=== PATIENT | male | born 1955 | race Two or more races ===

== ENCOUNTER 2020-05-01 09:29 | Inpatient (IN) | payer MEDICARE, MEDICAID ==
[~2020-05-01] VITALS: Ht 160 cm; Wt 68.0 kg
[2020-05-01 10:08] LABS: BASOPHILS % 0.6 % (0.0-2.0); EOSINOPHILS % 0.5 % (0.0-5.0); HEMATOCRIT. 51.5 % (42.0-52.0); HEMOGLOBIN. 16.9 g/dL (14.0-18.0); LYMPHOCYTES % 19.6 % (20.0-50.0); MEAN CORPUSCULAR HEMOGLOBIN 28.3 pg (28.0-32.0); MEAN CORPUSCULAR VOLUME 85.9 fL (80.0-94.0); MEAN PLATELET VOLUME 8.7 fl (7.4-10.4); MONOCYTES % 9.7 % (2.0-8.0); NEUTROPHILS % 69.6 % (40.0-76.0); PLATELET 168 x1000/uL (130-400); RED BLOOD CELL COUNT 5.99 mill/uL (4.7-6.1); RED CELL DISTRIBUTION WIDTH 15.7 % (11.6-14.6)
[2020-05-01 10:15] LABS: CHLORIDE 109 mEq/L (98-107)
[2020-05-01 10:16] LABS: PROTHROMBIN TIME 10.7 sec (9.6-11.0)
[2020-05-01 10:19] LABS: ETHANOL BLOOD < 10 mg/dL
[2020-05-01 10:24] LABS: CLARITY URINE CLEAR (CLEAR); COLOR URINE YELLOW (YELLOW); KETONES URINE NEGATIVE (NEGATIVE); LEUKOCYTE ESTERASE URINE NEGATIVE (NEGATIVE); NITRITE URINE NEGATIVE (NEGATIVE); OCCULT BLOOD URINE TRACE (NEGATIVE); PROTEIN URINE 1+ (NEGATIVE); SPECIFIC GRAVITY URINE 1.014 (1.005-1.030); UROBILINOGEN URINE 0.2 E.U./dL (0.2-1.0)
[2020-05-01 10:48] LABS: BG BASE EXCESS -9.9 mmol/L (-2.0-2.0); BG CARBOXYHEMOGLOBIN 0.3 % (0.5-1.5); BG DEOXYHEMOGLOBIN 3.7 % (0.0-5.0); BG FRACTION INSPIRED OXYGEN 21; BG HCO3 ACT 16.7 mmol/L (22.0-26.0); BG METHEMOGLOBIN 0.2 % (0.0-1.5); BG OXYGEN SATURATION 96.3 % (92.0-98.5); BG OXYHEMOGLOBIN 95.8 % (94.0-97.0); BG PCO2 39.2 mmHg (35.0-45.0); BG PH 7.247 (7.350-7.450); BG PO2 93.1 mmHg (75.0-100.0); BG SAMPLE SITE RIGHT RADIAL; BG TOTAL HEMOGLOBIN 16.1 g/dL (12.0-18.0); BG VENT MODE ROOM AIR
[2020-05-01] MEDS ORDERED: PIPERACILLIN/TAZ 3.375G PREMIX 50 ML IV ONE (11:30)
[2020-05-01] MEDS ORDERED: VANCOMYCIN 1 G PREMIX 200 ML IV ONE (11:30)
[2020-05-01] MEDS ORDERED: SODIUM CHLORIDE 0.9% 1000ML BAG (SEPSIS BOLUS) IV ONE (11:30)
[2020-05-01] MEDS ORDERED: DIPHENHYDRAMINE 50MG/ML VIAL IV PRN (18:30)
[2020-05-01] MEDS ORDERED: ONDANSETRON HCL 4MG/2ML INJ IV PRN (18:30)
[2020-05-01] MEDS ORDERED: IPRATROPIUM/ALBUTEROL 0.5-3(2.5)MG/3ML NEB HHN PRN (18:30)
[2020-05-01] MEDS: SODIUM CHLORIDE 0.9% 1,000 ML IV SCH (18:57)
[2020-05-01] MEDS: CLONIDINE 0.1MG TABLET PO PRN (18:57)
[2020-05-01 19:28] LABS: PHOSPHORUS 6.4 mg/dL (2.5-4.9)
[2020-05-01] MEDS ORDERED: PIPERACILLIN/TAZ 3.375G PREMIX 50 ML IV SCH (20:00)
[2020-05-01] MEDS ORDERED: PIPERACILLIN/TAZOBACTAM 3.375 G in DEXT 5% WATER 100 ML IV NR (20:45)
[2020-05-01] MEDS ORDERED: CLONIDINE 0.3MG TABLET PO NR (21:32)
[2020-05-01 23:35] LABS: BASOPHILS % 0.4 % (0.0-2.0); EOSINOPHILS % 0.7 % (0.0-5.0); HEMATOCRIT. 45.2 % (42.0-52.0); LYMPHOCYTES % 9.7 % (20.0-50.0); MEAN CORPUSCULAR HEMOGLOBIN 28.2 pg (28.0-32.0); MEAN CORPUSCULAR VOLUME 85.2 fL (80.0-94.0); MEAN PLATELET VOLUME 8.6 fl (7.4-10.4); MONOCYTES % 9.8 % (2.0-8.0); NEUTROPHILS % 79.4 % (40.0-76.0); PLATELET 148 x1000/uL (130-400); RED CELL DISTRIBUTION WIDTH 15.7 % (11.6-14.6)
[2020-05-01 23:41] LABS: PHOSPHORUS 4.6 mg/dL (2.5-4.9)
[2020-05-01 23:46] LABS: CREATINE KINASE MB FRACTION 3.6 ng/mL (0.5-3.6)
[2020-05-02] MEDS ORDERED: PIPERACILLIN/TAZ 3.375G PREMIX 50 ML IV SCH (04:00)
[2020-05-02 04:43] LABS: CHLORIDE 111 mEq/L (98-107)
[2020-05-02 04:47] LABS: BASOPHILS % 0.5 % (0.0-2.0); EOSINOPHILS % 0.7 % (0.0-5.0); HEMOGLOBIN. 15.2 g/dL (14.0-18.0); LYMPHOCYTES % 10.1 % (20.0-50.0); MEAN CORPUSCULAR HEMOGLOBIN 28.2 pg (28.0-32.0); MEAN CORPUSCULAR VOLUME 85.4 fL (80.0-94.0); MEAN PLATELET VOLUME 8.5 fl (7.4-10.4); MONOCYTES % 9.7 % (2.0-8.0); PLATELET 150 x1000/uL (130-400); RED BLOOD CELL COUNT 5.39 mill/uL (4.7-6.1); RED CELL DISTRIBUTION WIDTH 15.9 % (11.6-14.6)
[2020-05-02 04:49] LABS: LDL CHOLESTEROL 66 mg/dL (5-100)
[2020-05-02 04:51] LABS: CREATINE KINASE 320 IU/L (39-308); HDL CHOLESTEROL 42 mg/dL (40-59)
[2020-05-02 04:54] LABS: CREATINE KINASE MB FRACTION 3.6 ng/mL (0.5-3.6)
[2020-05-02] MEDS ORDERED: LABETALOL 5MG/ML SYR 20 MG/4 ML SYRINGE IV ONE (06:15)
[2020-05-02] MEDS ORDERED: PIPERACILLIN/TAZOBACTAM 2.25 G in DEXTROSE 5% WATER 50 ML IV SCH (08:00)
[2020-05-02] MEDS: CLONIDINE 0.1MG TABLET PO PRN ×2 (09:13→21:31)
[2020-05-02 10:00] VITALS: BP 239/124
[2020-05-02] MEDS: PIPERACILLIN/TAZOBACTAM 2.25 G in DEXTROSE 5% WATER 50 ML IV SCH ×2 (10:12→17:07)
[2020-05-02] MEDS: HYDRALAZINE 20MG/ML VIAL IV PRN ×3 (10:45→21:33)
[2020-05-02] MEDS ORDERED: DEXTROSE 50% WATER 50ML SYRINGE IV PRN (11:30)
[2020-05-02 11:55] VITALS: BP_SYST 129; BP_SYST 239; BP_DIAS 134; BP_DIAS 71
[2020-05-02 12:00] VITALS: BP 210/104
[2020-05-02] MEDS ORDERED: CYCL100C MT (12:08)
[2020-05-02] MEDS ORDERED: INSU100I28 SQ (12:08)
[2020-05-02] MEDS ORDERED: INSU100C6 SQ (12:08)
[2020-05-02] MEDS ORDERED: TAMS-11 PO (12:08)
[2020-05-02] MEDS ORDERED: PRED5TAB MT (12:08)
[2020-05-02] MEDS ORDERED: ATOR20TA65 PO (12:08)
[2020-05-02] MEDS ORDERED: FURO20TA4 MT (12:08)
[2020-05-02] MEDS ORDERED: GABA-531 PO (12:08)
[2020-05-02] MEDS: INSULIN LISPRO 100 UNITS/ML SUBCUT SCH ×3 (12:52→21:31)
[2020-05-02] MEDS: BLOOD SUGAR DIAGNOSTIC STRIP TEST SCH ×3 (12:52→21:21)
[2020-05-02] MEDS ORDERED: LABETALOL 5MG/ML SYR 20 MG/4 ML SYRINGE IV SCH (15:00)
[2020-05-02] MEDS: SODIUM CHLORIDE 0.9% 1,000 ML IV SCH ×2 (15:35→21:33)
[2020-05-02 16:00] VITALS: BP 126/66
[2020-05-02] MEDS: CYCLOSPORINE, MODIFIED 100MG CAPSULE PO SCH (17:05)
[2020-05-02 17:47] LABS: CLARITY URINE CLEAR (CLEAR); COLOR URINE YELLOW (YELLOW); KETONES URINE NEGATIVE (NEGATIVE); LEUKOCYTE ESTERASE URINE NEGATIVE (NEGATIVE); NITRITE URINE NEGATIVE (NEGATIVE); OCCULT BLOOD URINE 1+ (NEGATIVE); PROTEIN URINE 2+ (NEGATIVE); SPECIFIC GRAVITY URINE 1.012 (1.005-1.030); UROBILINOGEN URINE 0.2 E.U./dL (0.2-1.0)
[2020-05-02 20:00] VITALS: BP 215/103
[2020-05-02] MEDS: GUAIFENESIN 600MG ER TABLET PO SCH (21:32)
[2020-05-02] MEDS: ATORVASTATIN CALCIUM 20MG TABLET PO SCH (21:32)
[2020-05-02] MEDS: NIFEDIPINE XL 60MG TAB PO SCH (21:32)
[2020-05-02] MEDS: ACETAMINOPHEN 325MG TABLET PO PRN (21:32)
[2020-05-02 22:59] VITALS: BP 211/100
[2020-05-03] VITALS: BP 157/82
[2020-05-03] MEDS: PIPERACILLIN/TAZOBACTAM 2.25 G in DEXTROSE 5% WATER 50 ML IV SCH ×4 (00:22→17:27)
[2020-05-03 04:00] VITALS: BP 104/56
[2020-05-03] MEDS: ACETAMINOPHEN 325MG TABLET PO PRN (04:02)
[2020-05-03] MEDS: INSULIN LISPRO 100 UNITS/ML SUBCUT SCH ×4 (06:53→21:01)
[2020-05-03] MEDS: BLOOD SUGAR DIAGNOSTIC STRIP TEST SCH ×4 (06:53→21:02)
[2020-05-03 07:28] LABS: BASOPHILS % 1.1 % (0.0-2.0); HEMATOCRIT. 48.1 % (42.0-52.0); HEMOGLOBIN. 15.9 g/dL (14.0-18.0); LYMPHOCYTES % 9.4 % (20.0-50.0); MEAN CORPUSCULAR HEMOGLOBIN 28.2 pg (28.0-32.0); MEAN CORPUSCULAR VOLUME 85.1 fL (80.0-94.0); MEAN PLATELET VOLUME 8.7 fl (7.4-10.4); NEUTROPHILS % 75.5 % (40.0-76.0); PLATELET 141 x1000/uL (130-400); RED BLOOD CELL COUNT 5.65 mill/uL (4.7-6.1); RED CELL DISTRIBUTION WIDTH 15.8 % (11.6-14.6)
[2020-05-03 07:33] LABS: CHLORIDE 108 mEq/L (98-107)
[2020-05-03 07:46] LABS: PHOSPHORUS 5.1 mg/dL (2.5-4.9)
[2020-05-03 08:00] VITALS: BP 92/52
[2020-05-03] MEDS: NIFEDIPINE XL 60MG TAB PO SCH (09:00)
[2020-05-03] MEDS: TAMSULOSIN HCL 0.4MG SR CAPSULE PO SCH (09:00)
[2020-05-03] MEDS: PREDNISONE 5MG TABLET PO SCH (09:35)
[2020-05-03] MEDS: GUAIFENESIN 600MG ER TABLET PO SCH ×2 (09:35→21:00)
[2020-05-03] MEDS: CYCLOSPORINE, MODIFIED 25MG CAPSULE PO SCH (09:36)
[2020-05-03] MEDS ORDERED: SODIUM POLYSTYRENE SULFONATE 15 G/60 ML BOT PO NR (10:15)
[2020-05-03 12:00] VITALS: BP 121/71
[2020-05-03] MEDS: SODIUM CHLORIDE 0.9% 1,000 ML IV SCH (12:37)
[2020-05-03 16:00] VITALS: BP 148/88
[2020-05-03] MEDS: CYCLOSPORINE, MODIFIED 100MG CAPSULE PO SCH (17:27)
[2020-05-03 20:00] VITALS: BP 177/87
[2020-05-03] MEDS: ATORVASTATIN CALCIUM 20MG TABLET PO SCH (21:00)
[2020-05-03] MEDS: NIFEDIPINE XL 30MG TAB PO SCH (21:00)
[2020-05-04] VITALS: BP 180/89
[2020-05-04] MEDS: SODIUM CHLORIDE 0.9% 1,000 ML IV SCH ×2 (00:15→13:02)
[2020-05-04] MEDS: PIPERACILLIN/TAZOBACTAM 2.25 G in DEXTROSE 5% WATER 50 ML IV SCH ×3 (00:16→12:59)
[2020-05-04] MEDS: CLONIDINE 0.1MG TABLET PO PRN (00:16)
[2020-05-04 04:00] VITALS: BP 177/84
[2020-05-04] MEDS: HYDRALAZINE 20MG/ML VIAL IV PRN (05:08)
[2020-05-04] MEDS: BLOOD SUGAR DIAGNOSTIC STRIP TEST SCH ×2 (06:33→11:45)
[2020-05-04] MEDS: INSULIN LISPRO 100 UNITS/ML SUBCUT SCH ×2 (06:44→12:59)
[2020-05-04 08:00] VITALS: BP 126/69
[2020-05-04 08:05] LABS: BASOPHILS % 0.8 % (0.0-2.0); EOSINOPHILS % 1.1 % (0.0-5.0); HEMATOCRIT. 47.5 % (42.0-52.0); HEMOGLOBIN. 15.6 g/dL (14.0-18.0); LYMPHOCYTES % 9.9 % (20.0-50.0); MEAN CORPUSCULAR HEMOGLOBIN 27.9 pg (28.0-32.0); MEAN CORPUSCULAR VOLUME 84.9 fL (80.0-94.0); MONOCYTES % 11.8 % (2.0-8.0); NEUTROPHILS % 76.4 % (40.0-76.0); PLATELET 147 x1000/uL (130-400); RED CELL DISTRIBUTION WIDTH 15.9 % (11.6-14.6)
[2020-05-04] MEDS: NIFEDIPINE XL 30MG TAB PO SCH (08:47)
[2020-05-04] MEDS: GUAIFENESIN 600MG ER TABLET PO SCH (08:47)
[2020-05-04] MEDS: TAMSULOSIN HCL 0.4MG SR CAPSULE PO SCH (08:47)
[2020-05-04] MEDS: PREDNISONE 5MG TABLET PO SCH (08:47)
[2020-05-04] MEDS ORDERED: INSU100I28 SQ (11:49)
[2020-05-04] MEDS ORDERED: NIFE-33 PO (11:49)
[2020-05-04] MEDS: CYCLOSPORINE, MODIFIED 25MG CAPSULE PO SCH (11:50)
[2020-05-04 12:00] VITALS: BP 140/84
[2020-05-04 14:27] VITALS: BP 126/69
[2020-05-07 08:11] LABS: CYCLOSPORINE None Detected ng/mL (100-400)
== END 2020-05-04 15:45 | disposition home or self-care (01) | DRG 871 ==
LOC: ER 09:29 → EDBEDREQTM 11:37 → EDBEDREQ 11:37 → 7WST 13:02 → EDBEDREQTM 13:05 → EDBEDREQSVC 13:05 → EDBEDREQ 13:05 → ENRESERV 21:21 → CANRESERV 21:21 → EDBEDREQ 05-02 00:22 → CANBEDREQ 05-02 04:59 → ENRESERV 05-02 08:31 → 5WST 05-02 23:08
PROVIDERS: ADMIT Internal Medicine; ATTEND Internal Medicine
DX: A41.9 Sepsis, unspecified organism (principal); G93.41 Metabolic encephalopathy; J18.9 Pneumonia, unspecified organism; E87.2 Acidosis; N17.9 Acute kidney failure, unspecified; T86.12 Kidney transplant failure; E11.649 Type 2 diabetes mellitus with hypoglycemia without coma; E78.5 Hyperlipidemia, unspecified; R07.89 Other chest pain; E83.39 Other disorders of phosphorus metabolism; E83.41 Hypermagnesemia; I10 Essential (primary) hypertension; N40.0 Benign prostatic hyperplasia without lower urinary tract symptoms; E11.51 Type 2 diabetes mellitus with diabetic peripheral angiopathy without gangrene; I48.91 Unspecified atrial fibrillation; I16.0 Hypertensive urgency; Z86.73 Personal history of transient ischemic attack (TIA), and cerebral infarction without residual deficits; Z87.891 Personal history of nicotine dependence; Z79.4 Long term (current) use of insulin; Z89.432 Acquired absence of left foot; Y83.0 Surgical operation with transplant of whole organ as the cause of abnormal reaction of the patient, or of later complication, without mention of misadventure at the time of the procedure; Y92.89 Other specified places as the place of occurrence of the external cause; Z20.828 Contact with and (suspected) exposure to other viral communicable diseases
CPT/HCPCS: 36415; 36600; 71045; 71046; 80048; 80053; 80061; 80158; 80197; 80320; 81003; 82375; 82550; 82553; 82805; 82962; 83036; 83605; 83735; 84100; 84145; 84443; 84484; 85025; 93005; 93970; 99291; J0360; J1815; J2543; J3370; J3490; J7030; J7060; J7502; J7512; J7515; G0480; U0003-CS

== ENCOUNTER 2020-05-14 10:50 | Inpatient (IN) | payer MEDICARE, MEDICAID ==
[~2020-05-14] VITALS: Ht 170.2 cm; Wt 54.0 kg
[~2020-05-14 10:50] MED LIST: ATOR20TA65 PO; CYCL100C MT; FURO20TA4 MT; GABA-531 PO; INSU100I28 SQ; NIFE-33 PO; PRED5TAB MT; TAMS-11 PO
[2020-05-14] MEDS ORDERED: PROPOFOL 10MG/ML 100ML 100 ML IV ONE ×2 (11:21→11:45)
[2020-05-14 12:07] LABS: BG BASE EXCESS -16.6 mmol/L (-2.0-2.0); BG CARBOXYHEMOGLOBIN 0.4 % (0.5-1.5); BG DEOXYHEMOGLOBIN 2.3 % (0.0-5.0); BG FRACTION INSPIRED OXYGEN 100; BG HCO3 ACT 10.6 mmol/L (22.0-26.0); BG METHEMOGLOBIN 0.3 % (0.0-1.5); BG OXYGEN SATURATION 97.7 % (92.0-98.5); BG PCO2 30.1 mmHg (35.0-45.0); BG PH 7.165 (7.350-7.450); BG PO2 125.2 mmHg (75.0-100.0); BG SAMPLE SITE RIGHT BRACHIAL; BG TIDAL VOLUME(mL) 500 mL; BG TOTAL HEMOGLOBIN 14.2 g/dL (12.0-18.0); BG VENT MODE VENT - A/C; BG VENT RATE 12 set
[2020-05-14 12:11] LABS: HEMATOCRIT. 44.1 % (42.0-52.0); HEMOGLOBIN. 14.5 g/dL (14.0-18.0); MEAN CORPUSCULAR HEMOGLOBIN 27.8 pg (28.0-32.0); MEAN CORPUSCULAR VOLUME 84.5 fL (80.0-94.0); MEAN PLATELET VOLUME 9.1 fl (7.4-10.4); PLATELET 214 x1000/uL (130-400); RED BLOOD CELL COUNT 5.22 mill/uL (4.7-6.1); RED CELL DISTRIBUTION WIDTH 15.6 % (11.6-14.6)
[2020-05-14 12:13] LABS: CHLORIDE 106 mEq/L (98-107)
[2020-05-14] MEDS ORDERED: PIPERACILLIN/TAZ 3.375G PREMIX 50 ML IV ONE (12:30)
[2020-05-14 12:35] LABS: D-DIMER 2.07 mg/L FEU (<0.50); PLATELET ESTIMATE NORMAL; PROTHROMBIN TIME 10.9 sec (9.6-11.0)
[2020-05-14] MEDS ORDERED: LIDOCAINE HCL 1% 20ML VIAL (Pyxis) INJ ONE (12:44)
[2020-05-14] MEDS ORDERED: SODIUM BICARBONATE 8.4% 1 MEQ/ML 50ML SYR IV ONE (12:45)
[2020-05-14] MEDS ORDERED: INSULIN REGULAR (HUMULIN R) 300UNITS/3ML IV ONE (12:45)
[2020-05-14] MEDS ORDERED: DEXTROSE 50% WATER 50ML SYRINGE IV ONE (12:45)
[2020-05-14 15:42] LABS: CLARITY URINE CLOUDY (CLEAR); COLOR URINE DARK YELLOW (YELLOW); KETONES URINE TRACE (NEGATIVE); LEUKOCYTE ESTERASE URINE TRACE (NEGATIVE); NITRITE URINE NEGATIVE (NEGATIVE); OCCULT BLOOD URINE 1+ (NEGATIVE); PROTEIN URINE 2+ (NEGATIVE); SPECIFIC GRAVITY URINE 1.018 (1.005-1.030)
[2020-05-14] MEDS ORDERED: NOREPINEPHRINE 32 MG in DEXT 5% WATER 468 ML IV PRN (16:00)
[2020-05-14] MEDS ORDERED: AZITHROMYCIN 500 MG TABLET PO SCH (16:30)
[2020-05-14] MEDS ORDERED: SODIUM BICARBONATE 8.4% 1 MEQ/ML 50ML SYR IV NR (16:30)
[2020-05-14] MEDS: ENOXAPARIN 30MG/0.3ML SYR SUBCUT SCH (17:09)
[2020-05-14] MEDS: CEFEPIME 1,000 MG in DEXTROSE 5% WATER 50 ML IV SCH (17:09)
[2020-05-14] MEDS: SODIUM BICARBONATE 100 MEQ in SODIUM CHLORIDE 0.45% 1,000 ML IV SCH (17:09)
[2020-05-14] MEDS: PANTOPRAZOLE SODIUM 40 MG/VIAL IV SCH (17:09)
[2020-05-14] MEDS: AZITHROMYCIN 500 MG in DEXT 5% WATER 250 ML IV SCH (18:26)
[2020-05-14] MEDS ORDERED: CYCLOSPORINE, MODIFIED 25MG CAPSULE PO ONE (19:45)
[2020-05-14] MEDS ORDERED: IPRATROPIUM/ALBUTEROL 0.5-3(2.5)MG/3ML NEB HHN PRN (19:45)
[2020-05-14] MEDS: IPRATROPIUM/ALBUTEROL 0.5-3(2.5)MG/3ML NEB HHN SCH (20:00)
[2020-05-14 20:38] LABS: BG CARBOXYHEMOGLOBIN 0.3 % (0.5-1.5); BG DEOXYHEMOGLOBIN 3.7 % (0.0-5.0); BG FRACTION INSPIRED OXYGEN 90; BG HCO3 ACT 24.5 mmol/L (22.0-26.0); BG METHEMOGLOBIN 0.4 % (0.0-1.5); BG OXYGEN SATURATION 96.3 % (92.0-98.5); BG OXYHEMOGLOBIN 95.6 % (94.0-97.0); BG PCO2 35.5 mmHg (35.0-45.0); BG PH 7.457 (7.350-7.450); BG PO2 80.1 mmHg (75.0-100.0); BG SAMPLE SITE RIGHT RADIAL; BG TIDAL VOLUME(mL) 500 mL; BG TOTAL HEMOGLOBIN 13.1 g/dL (12.0-18.0); BG VENT MODE VENT - A/C; BG VENT RATE 18 set
[2020-05-14] MEDS: INSULIN GLARGINE UD 100 UNITS/ML SYR SUBCUT SCH (23:01)
[2020-05-14] MEDS: SODIUM POLYSTYRENE SULFONATE 15 G/60 ML BOT PO SCH (23:35)
[2020-05-14] MEDS: PROPOFOL 10MG/ML 100ML 100 ML IV PRN (23:36)
[2020-05-15] MEDS: IPRATROPIUM/ALBUTEROL 0.5-3(2.5)MG/3ML NEB HHN SCH ×6 (00:20→20:20)
[2020-05-15] MEDS: PROPOFOL 10MG/ML 100ML 100 ML IV PRN ×2 (05:20→10:32)
[2020-05-15 06:01] LABS: HEMOGLOBIN. 12.8 g/dL (14.0-18.0); MEAN CORPUSCULAR HEMOGLOBIN 28.4 pg (28.0-32.0); MEAN CORPUSCULAR VOLUME 82.2 fL (80.0-94.0); MEAN PLATELET VOLUME 8.7 fl (7.4-10.4); PLATELET 195 x1000/uL (130-400); RED CELL DISTRIBUTION WIDTH 15.3 % (11.6-14.6)
[2020-05-15 06:08] LABS: CHLORIDE 102 mEq/L (98-107)
[2020-05-15] MEDS: CEFEPIME 1,000 MG in DEXTROSE 5% WATER 50 ML IV SCH ×2 (06:27→17:20)
[2020-05-15 07:10] LABS: C REACTIVE PROTEIN QUANT > 190.0 mg/L (0.0-3.0)
[2020-05-15] MEDS: SODIUM BICARBONATE 100 MEQ in SODIUM CHLORIDE 0.45% 1,000 ML IV SCH ×2 (08:37→22:50)
[2020-05-15 08:43] LABS: NUCLEATED RED BLOOD CELLS 1 /100 WBC; PLATELET ESTIMATE NORMAL
[2020-05-15] MEDS: PANTOPRAZOLE SODIUM 40 MG/VIAL IV SCH (08:46)
[2020-05-15] MEDS: INSULIN GLARGINE UD 100 UNITS/ML SYR SUBCUT SCH ×2 (10:23→23:45)
[2020-05-15] MEDS ORDERED: CYCLOSPORINE, MODIFIED 100MG CAPSULE PO SCH (11:00)
[2020-05-15 11:29] LABS: BG BASE EXCESS -2.7 mmol/L (-2.0-2.0); BG CARBOXYHEMOGLOBIN 0.3 % (0.5-1.5); BG DEOXYHEMOGLOBIN 1.2 % (0.0-5.0); BG FRACTION INSPIRED OXYGEN 90; BG HCO3 ACT 22.1 mmol/L (22.0-26.0); BG METHEMOGLOBIN 0.5 % (0.0-1.5); BG OXYGEN SATURATION 98.8 % (92.0-98.5); BG PCO2 38.6 mmHg (35.0-45.0); BG PH 7.376 (7.350-7.450); BG PO2 177.3 mmHg (75.0-100.0); BG SAMPLE SITE RIGHT BRACHIAL; BG TIDAL VOLUME(mL) 500 mL; BG TOTAL HEMOGLOBIN 12.7 g/dL (12.0-18.0); BG VENT MODE VENT - A/C; BG VENT RATE 18 set
[2020-05-15] MEDS ORDERED: METHYLPREDNISOLONE SOD SUCC 125 MG/2 ML VIAL IV NR (12:15)
[2020-05-15 12:22] LABS: HEMATOCRIT. 36.7 % (42.0-52.0); HEMOGLOBIN. 12.5 g/dL (14.0-18.0); MEAN CORPUSCULAR HEMOGLOBIN 28.1 pg (28.0-32.0); MEAN CORPUSCULAR VOLUME 82.5 fL (80.0-94.0); MEAN PLATELET VOLUME 8.7 fl (7.4-10.4); PLATELET 195 x1000/uL (130-400); RED BLOOD CELL COUNT 4.45 mill/uL (4.7-6.1); RED CELL DISTRIBUTION WIDTH 15.3 % (11.6-14.6)
[2020-05-15 12:49] LABS: PLATELET ESTIMATE NORMAL
[2020-05-15] MEDS ORDERED: PROPOFOL 10MG/ML 100ML 100 ML IV PRN (13:45)
[2020-05-15] MEDS: ENOXAPARIN 30MG/0.3ML SYR SUBCUT SCH (17:20)
[2020-05-15] MEDS: AZITHROMYCIN 500 MG in DEXT 5% WATER 250 ML IV SCH (17:20)
[2020-05-15] MEDS: SODIUM POLYSTYRENE SULFONATE 15 G/60 ML BOT PO SCH (23:30)
[2020-05-15] MEDS: METHYLPREDNISOLONE SOD SUCC 40 MG/ML VIAL IV SCH (23:40)
[2020-05-16] VITALS (19 sets, daily range): BP systolic 119–145; BP diastolic 65–74
[2020-05-16] MEDS: IPRATROPIUM/ALBUTEROL 0.5-3(2.5)MG/3ML NEB HHN SCH ×5 (00:20→20:30)
[2020-05-16 04:47] LABS: CHLORIDE 96 mEq/L (98-107)
[2020-05-16] MEDS: CEFEPIME 1,000 MG in DEXTROSE 5% WATER 50 ML IV SCH ×2 (07:00→18:00)
[2020-05-16] MEDS: METHYLPREDNISOLONE SOD SUCC 40 MG/ML VIAL IV SCH (09:00)
[2020-05-16] MEDS: PANTOPRAZOLE SODIUM 40 MG/VIAL IV SCH ×2 (09:00→20:56)
[2020-05-16] MEDS: INSULIN GLARGINE UD 100 UNITS/ML SYR SUBCUT SCH (10:00)
[2020-05-16 10:17] LABS: BG BASE EXCESS -1.1 mmol/L (-2.0-2.0); BG CARBOXYHEMOGLOBIN 0.3 % (0.5-1.5); BG DEOXYHEMOGLOBIN 7.3 % (0.0-5.0); BG FRACTION INSPIRED OXYGEN 70; BG METHEMOGLOBIN 0.3 % (0.0-1.5); BG OXYGEN SATURATION 92.7 % (92.0-98.5); BG OXYHEMOGLOBIN 92.1 % (94.0-97.0); BG PCO2 41.8 mmHg (35.0-45.0); BG PH 7.377 (7.350-7.450); BG PO2 67.4 mmHg (75.0-100.0); BG SAMPLE SITE RIGHT RADIAL; BG TIDAL VOLUME(mL) 500 mL; BG TOTAL HEMOGLOBIN 12.6 g/dL (12.0-18.0); BG VENT MODE VENT - A/C; BG VENT RATE 18 set
[2020-05-16] MEDS: SODIUM BICARBONATE 100 MEQ in SODIUM CHLORIDE 0.45% 1,000 ML IV SCH (13:30)
[2020-05-16] MEDS: DEXAMETHASONE 10 MG/ML VIAL IV SCH (14:30)
[2020-05-16] MEDS ORDERED: REMDESIVIR 200 MG in SODIUM CHLORIDE 0.9% 250 ML IV NR (16:00)
[2020-05-16] MEDS: AZITHROMYCIN 500 MG in DEXT 5% WATER 250 ML IV SCH ×2 (18:00→23:26)
[2020-05-16] MEDS ORDERED: PROPOFOL 10MG/ML 100ML 100 ML IV PRN (19:45)
[2020-05-16] MEDS: FENTANYL CITRATE/PF 1,000 MCG in SODIUM CHLORIDE 0.9% 80 ML IV PRN (20:07)
[2020-05-16] MEDS: MIDAZOLAM HCL 100 MG in DEXT 5% WATER 80 ML IV PRN (20:14)
[2020-05-16] MEDS: ENOXAPARIN 30MG/0.3ML SYR SUBCUT SCH (20:56)
[2020-05-16 23:00] LABS: HEMATOCRIT 33.7 % (42.0-52.0); HEMOGLOBIN 11.4 g/dL (14.0-18.0); MEAN CORPUSCULAR HEMOGLOBIN 27.5 pg (28.0-32.0); MEAN CORPUSCULAR VOLUME 81.9 fL (80.0-94.0); PLATELET 215 x1000/uL (130-400); RED BLOOD CELL COUNT 4.12 mill/uL (4.7-6.1); RED CELL DISTRIBUTION WIDTH 15.2 % (11.6-14.6)
[2020-05-16] MEDS ORDERED: INSULIN GLARGINE UD 100 UNITS/ML SYR SUBCUT SCH (23:00)
[2020-05-17] VITALS (90 sets, daily range): BP systolic 121–214; BP diastolic 66–108
[2020-05-17] MEDS: IPRATROPIUM/ALBUTEROL 0.5-3(2.5)MG/3ML NEB HHN SCH ×6 (00:17→22:05)
[2020-05-17] MEDS ORDERED: TAMS-11 PO (01:09)
[2020-05-17] MEDS ORDERED: ATOR20TA65 PO (01:09)
[2020-05-17] MEDS ORDERED: CYCL100C PO ×2 (01:09)
[2020-05-17] MEDS ORDERED: NIFE-32 PO (01:09)
[2020-05-17] MEDS ORDERED: NAPR-1164 PO (01:09)
[2020-05-17] MEDS ORDERED: PRED5TAB PO (01:09)
[2020-05-17] MEDS ORDERED: INSU100I28 SQ (01:09)
[2020-05-17 04:59] LABS: HEMATOCRIT. 35.2 % (42.0-52.0); HEMOGLOBIN. 11.8 g/dL (14.0-18.0); MEAN CORPUSCULAR HEMOGLOBIN 27.9 pg (28.0-32.0); MEAN CORPUSCULAR VOLUME 82.9 fL (80.0-94.0); MEAN PLATELET VOLUME 8.8 fl (7.4-10.4); PLATELET 210 x1000/uL (130-400); RED BLOOD CELL COUNT 4.24 mill/uL (4.7-6.1); RED CELL DISTRIBUTION WIDTH 15.3 % (11.6-14.6)
[2020-05-17 07:03] LABS: CHLORIDE 94 mEq/L (98-107)
[2020-05-17] MEDS ORDERED: LIDOCAINE HCL 1% 20ML VIAL (Pyxis) INJ ONE (08:24)
[2020-05-17 08:40] LABS: BG BASE EXCESS 1.8 mmol/L (-2.0-2.0); BG CARBOXYHEMOGLOBIN 0.3 % (0.5-1.5); BG DEOXYHEMOGLOBIN 0.6 % (0.0-5.0); BG FRACTION INSPIRED OXYGEN 90; BG HCO3 ACT 25.4 mmol/L (22.0-26.0); BG METHEMOGLOBIN 0.6 % (0.0-1.5); BG OXYGEN SATURATION 99.4 % (92.0-98.5); BG OXYHEMOGLOBIN 98.5 % (94.0-97.0); BG PCO2 36.4 mmHg (35.0-45.0); BG PH 7.462 (7.350-7.450); BG SAMPLE SITE RIGHT RADIAL; BG TIDAL VOLUME(mL) 500 mL; BG TOTAL HEMOGLOBIN 11.6 g/dL (12.0-18.0); BG VENT MODE VENT - A/C; BG VENT RATE 18 set
[2020-05-17] MEDS: DEXAMETHASONE 10 MG/ML VIAL IV SCH (08:58)
[2020-05-17] MEDS: PANTOPRAZOLE SODIUM 40 MG/VIAL IV SCH ×2 (08:58→17:46)
[2020-05-17] MEDS: CEFEPIME 1,000 MG in DEXTROSE 5% WATER 50 ML IV SCH (08:59)
[2020-05-17] MEDS: SODIUM BICARBONATE 100 MEQ in SODIUM CHLORIDE 0.45% 1,000 ML IV SCH ×2 (09:56→14:32)
[2020-05-17] MEDS: INSULIN GLARGINE UD 100 UNITS/ML SYR SUBCUT SCH ×2 (11:00→21:04)
[2020-05-17] MEDS: ENOXAPARIN 60MG/0.6ML SYR SUBCUT SCH (12:00)
[2020-05-17] MEDS: BLOOD SUGAR DIAGNOSTIC STRIP TEST SCH ×2 (12:00→18:27)
[2020-05-17] MEDS: INSULIN LISPRO 100 UNITS/ML SUBCUT SCH ×2 (12:00→18:00)
[2020-05-17] MEDS: FENTANYL CITRATE/PF 1,000 MCG in SODIUM CHLORIDE 0.9% 80 ML IV PRN (13:19)
[2020-05-17] MEDS ORDERED: HEPARIN SODIUM 1,000 UNIT/1ML VIAL IV NR (13:30)
[2020-05-17] MEDS ORDERED: REMDESIVIR 100 MG in SODIUM CHLORIDE 0.9% 250 ML IV SCH (14:15)
[2020-05-17 15:26] LABS: PLATELET ESTIMATE NORMAL
[2020-05-17] MEDS: CALCITRIOL 1MCG/ML AMP IV SCH (15:51)
[2020-05-17] MEDS: CLONIDINE 0.1MG TABLET PO PRN ×2 (15:54→22:33)
[2020-05-17] MEDS ORDERED: LABETALOL 5MG/ML SYR 20 MG/4 ML SYRINGE IV SCH (19:00)
[2020-05-17] MEDS: HYDRALAZINE 20MG/ML VIAL IV PRN (19:50)
[2020-05-17] MEDS: AZITHROMYCIN 500 MG in DEXT 5% WATER 250 ML IV SCH (20:29)
[2020-05-17] MEDS: AMLODIPINE 5MG TABLET PO SCH (20:34)
[2020-05-17] MEDS: CLONIDINE 0.1MG TABLET PO SCH (21:07)
[2020-05-17] MEDS: DEXTROSE 50% WATER 50ML SYRINGE IV PRN (21:09)
[2020-05-17] MEDS: MIDAZOLAM HCL 100 MG in DEXT 5% WATER 80 ML IV PRN (23:42)
[2020-05-17] MEDS: NICARDIPINE 50 MG in SODIUM CHLORIDE 0.9% 230 ML IV PRN (23:57)
[2020-05-18] VITALS (96 sets, daily range): BP systolic 91–196; BP diastolic 53–99
[2020-05-18] MEDS: BLOOD SUGAR DIAGNOSTIC STRIP TEST SCH ×17 (00:36→22:24)
[2020-05-18] MEDS: IPRATROPIUM/ALBUTEROL 0.5-3(2.5)MG/3ML NEB HHN SCH ×6 (01:22→21:35)
[2020-05-18] MEDS: DEXTROSE 50% WATER 50ML SYRINGE IV PRN ×4 (03:29→12:34)
[2020-05-18] MEDS: FENTANYL CITRATE/PF 1,000 MCG in SODIUM CHLORIDE 0.9% 80 ML IV PRN (04:24)
[2020-05-18] MEDS: INSULIN LISPRO 100 UNITS/ML SUBCUT SCH ×3 (05:08→12:00)
[2020-05-18] MEDS ORDERED: DEXT 10% WATER 1,000 ML IV SCH (05:45)
[2020-05-18 05:53] LABS: HEMATOCRIT. 35.1 % (42.0-52.0); HEMOGLOBIN. 11.7 g/dL (14.0-18.0); MEAN CORPUSCULAR HEMOGLOBIN 27.6 pg (28.0-32.0); MEAN CORPUSCULAR VOLUME 82.8 fL (80.0-94.0); MEAN PLATELET VOLUME 8.2 fl (7.4-10.4); PLATELET 202 x1000/uL (130-400); RED BLOOD CELL COUNT 4.24 mill/uL (4.7-6.1); RED CELL DISTRIBUTION WIDTH 15.4 % (11.6-14.6)
[2020-05-18 05:55] LABS: CHLORIDE 105 mEq/L (98-107)
[2020-05-18] MEDS: CLONIDINE 0.1MG TABLET PO SCH ×3 (06:00→22:24)
[2020-05-18 06:01] LABS: PHOSPHORUS 5.9 mg/dL (2.5-4.9)
[2020-05-18 09:25] LABS: PLATELET ESTIMATE NORMAL
[2020-05-18] MEDS: PANTOPRAZOLE SODIUM 40 MG/VIAL IV SCH ×2 (09:56→16:33)
[2020-05-18] MEDS: DEXAMETHASONE 10 MG/ML VIAL IV SCH (09:56)
[2020-05-18] MEDS: AMLODIPINE 5MG TABLET PO SCH (09:57)
[2020-05-18] MEDS: CEFEPIME 1,000 MG in DEXTROSE 5% WATER 50 ML IV SCH (09:59)
[2020-05-18] MEDS: CALCITRIOL 1MCG/ML AMP IV SCH (10:00)
[2020-05-18] MEDS ORDERED: OCTREOTIDE ACETATE 100 MCG/ML 1ML IV ONE (11:00)
[2020-05-18] MEDS ORDERED: OCTREOTIDE ACETATE 50 MCG/ML 1ML IV ONE (11:00)
[2020-05-18] MEDS: ENOXAPARIN 60MG/0.6ML SYR SUBCUT SCH (11:25)
[2020-05-18] MEDS: SUCRALFATE 1 G/10 ML UDC PO SCH ×3 (11:41→22:24)
[2020-05-18 11:44] LABS: BG BASE EXCESS 2.2 mmol/L (-2.0-2.0); BG CARBOXYHEMOGLOBIN 0.1 % (0.5-1.5); BG DEOXYHEMOGLOBIN 7.3 % (0.0-5.0); BG FRACTION INSPIRED OXYGEN 60; BG HCO3 ACT 27.7 mmol/L (22.0-26.0); BG METHEMOGLOBIN 0.4 % (0.0-1.5); BG OXYGEN SATURATION 92.7 % (92.0-98.5); BG OXYHEMOGLOBIN 92.2 % (94.0-97.0); BG PCO2 46.5 mmHg (35.0-45.0); BG PH 7.393 (7.350-7.450); BG PO2 68.9 mmHg (75.0-100.0); BG SAMPLE SITE RIGHT RADIAL; BG TIDAL VOLUME(mL) 500 mL; BG TOTAL HEMOGLOBIN 12.9 g/dL (12.0-18.0); BG VENT MODE PRVC; BG VENT RATE 16 set
[2020-05-18 12:24] LABS: HEMATOCRIT 40.2 % (42.0-52.0); HEMOGLOBIN 13.1 g/dL (14.0-18.0)
[2020-05-18] MEDS: NICARDIPINE 50 MG in SODIUM CHLORIDE 0.9% 230 ML IV PRN (13:01)
[2020-05-18] MEDS ORDERED: NON FORMULARY PATIENT HOME MED XX SCH (13:15)
[2020-05-18] MEDS ORDERED: DEXTROSE 20% WATER 500 ML IV SCH (13:30)
[2020-05-18] MEDS: MIDAZOLAM HCL 100 MG in DEXT 5% WATER 80 ML IV PRN (20:03)
[2020-05-18] MEDS: AZITHROMYCIN 500 MG in DEXT 5% WATER 250 ML IV SCH (22:06)
[2020-05-18 23:17] LABS: HEMATOCRIT 34.9 % (42.0-52.0); HEMOGLOBIN 11.7 g/dL (14.0-18.0)
[2020-05-19] VITALS (95 sets, daily range): BP systolic 105–174; BP diastolic 56–90
[2020-05-19] MEDS: BLOOD SUGAR DIAGNOSTIC STRIP TEST SCH ×9 (00:22→23:09)
[2020-05-19] MEDS: IPRATROPIUM/ALBUTEROL 0.5-3(2.5)MG/3ML NEB HHN SCH ×6 (01:26→23:31)
[2020-05-19] MEDS: FENTANYL CITRATE/PF 1,000 MCG in SODIUM CHLORIDE 0.9% 80 ML IV PRN (03:42)
[2020-05-19 05:00] LABS: HEMATOCRIT. 35.1 % (42.0-52.0); HEMOGLOBIN. 11.5 g/dL (14.0-18.0); MEAN CORPUSCULAR VOLUME 85.2 fL (80.0-94.0); MEAN PLATELET VOLUME 8.5 fl (7.4-10.4); PLATELET 153 x1000/uL (130-400); RED BLOOD CELL COUNT 4.12 mill/uL (4.7-6.1); RED CELL DISTRIBUTION WIDTH 15.1 % (11.6-14.6)
[2020-05-19 05:01] LABS: PHOSPHORUS 6.3 mg/dL (2.5-4.9)
[2020-05-19] MEDS: CLONIDINE 0.1MG TABLET PO SCH ×3 (05:34→21:01)
[2020-05-19] MEDS: SUCRALFATE 1 G/10 ML UDC PO SCH ×4 (05:34→21:00)
[2020-05-19] MEDS: HYDRALAZINE 20MG/ML VIAL IV PRN ×2 (06:06→23:09)
[2020-05-19 07:13] LABS: PLATELET ESTIMATE NORMAL
[2020-05-19 09:03] LABS: BG BASE EXCESS 0.7 mmol/L (-2.0-2.0); BG CARBOXYHEMOGLOBIN 0.3 % (0.5-1.5); BG FRACTION INSPIRED OXYGEN 60; BG HCO3 ACT 25.2 mmol/L (22.0-26.0); BG METHEMOGLOBIN 0.3 % (0.0-1.5); BG OXYHEMOGLOBIN 98.4 % (94.0-97.0); BG PCO2 39.8 mmHg (35.0-45.0); BG PH 7.419 (7.350-7.450); BG SAMPLE SITE RIGHT RADIAL; BG TIDAL VOLUME(mL) 500 mL; BG TOTAL HEMOGLOBIN 12.2 g/dL (12.0-18.0); BG VENT MODE PRVC; BG VENT RATE 16 set
[2020-05-19] MEDS: DEXAMETHASONE 10 MG/ML VIAL IV SCH (10:42)
[2020-05-19] MEDS: CALCITRIOL 1MCG/ML AMP IV SCH (10:42)
[2020-05-19] MEDS: PANTOPRAZOLE SODIUM 40 MG/VIAL IV SCH ×2 (10:42→16:43)
[2020-05-19] MEDS: CEFEPIME 1,000 MG in DEXTROSE 5% WATER 50 ML IV SCH (10:43)
[2020-05-19] MEDS: ENOXAPARIN 60MG/0.6ML SYR SUBCUT SCH (13:52)
[2020-05-19] MEDS: INSULIN LISPRO 100 UNITS/ML SUBCUT SCH ×3 (13:53→23:08)
[2020-05-19] MEDS ORDERED: BLOOD SUGAR DIAGNOSTIC STRIP TEST SCH (16:30)
[2020-05-19] MEDS: SEVELAMER CARBONATE 800 MG TABLET PO SCH (16:43)
[2020-05-19] MEDS: AZITHROMYCIN 500 MG in DEXT 5% WATER 250 ML IV SCH (21:00)
[2020-05-19] MEDS ORDERED: INSULIN LISPRO 100 UNITS/ML SUBCUT SCH (21:00)
[2020-05-19] MEDS: INSULIN GLARGINE UD 100 UNITS/ML SYR SUBCUT SCH (23:08)
[2020-05-20] VITALS (71 sets, daily range): BP systolic 116–190; BP diastolic 58–93
[2020-05-20] MEDS: IPRATROPIUM/ALBUTEROL 0.5-3(2.5)MG/3ML NEB HHN SCH ×5 (00:50→20:31)
[2020-05-20 04:50] LABS: HEMATOCRIT. 35.4 % (42.0-52.0); HEMOGLOBIN. 11.7 g/dL (14.0-18.0); MEAN CORPUSCULAR VOLUME 84.6 fL (80.0-94.0); MEAN PLATELET VOLUME 8.6 fl (7.4-10.4); PLATELET 194 x1000/uL (130-400); RED BLOOD CELL COUNT 4.19 mill/uL (4.7-6.1); RED CELL DISTRIBUTION WIDTH 14.6 % (11.6-14.6)
[2020-05-20 05:07] LABS: PHOSPHORUS 5.6 mg/dL (2.5-4.9)
[2020-05-20] MEDS: BLOOD SUGAR DIAGNOSTIC STRIP TEST SCH ×4 (05:15→23:39)
[2020-05-20] MEDS: INSULIN LISPRO 100 UNITS/ML SUBCUT SCH ×4 (05:26→23:56)
[2020-05-20] MEDS: HYDRALAZINE 20MG/ML VIAL IV PRN ×3 (06:00→16:51)
[2020-05-20] MEDS: CLONIDINE 0.1MG TABLET PO SCH ×3 (06:00→21:31)
[2020-05-20] MEDS: SUCRALFATE 1 G/10 ML UDC PO SCH ×4 (06:01→20:18)
[2020-05-20] MEDS: SEVELAMER CARBONATE 800 MG TABLET PO SCH ×3 (06:01→16:51)
[2020-05-20 06:10] LABS: CYCLOSPORINE None Detected ng/mL (100-400)
[2020-05-20] MEDS: DEXAMETHASONE 10 MG/ML VIAL IV SCH (08:48)
[2020-05-20] MEDS: PANTOPRAZOLE SODIUM 40 MG/VIAL IV SCH ×2 (08:48→16:51)
[2020-05-20] MEDS: CALCITRIOL 1MCG/ML AMP IV SCH (08:48)
[2020-05-20] MEDS: ACETAMINOPHEN 650MG SUPP PR PRN (09:17)
[2020-05-20] MEDS: CLONIDINE 0.1MG TABLET PO PRN ×2 (10:09→20:19)
[2020-05-20 10:17] LABS: PLATELET ESTIMATE NORMAL
[2020-05-20] MEDS: ENOXAPARIN 60MG/0.6ML SYR SUBCUT SCH (12:05)
[2020-05-20] MEDS: INSULIN GLARGINE UD 100 UNITS/ML SYR SUBCUT SCH ×2 (12:07→21:32)
[2020-05-20 20:13] LABS: T4 FREE 0.94 ng/dL (0.76-1.46)
[2020-05-20 20:39] LABS: FOLIC ACID (FOLATE) SERUM 5.6 ng/mL (>5.38)
[2020-05-20] MEDS: LEVETIRACETAM 250 MG in SODIUM CHLORIDE 0.9% 100 ML IV SCH (21:32)
[2020-05-21] VITALS (92 sets, daily range): BP systolic 109–174; BP diastolic 53–82
[2020-05-21] MEDS: IPRATROPIUM/ALBUTEROL 0.5-3(2.5)MG/3ML NEB HHN SCH ×6 (00:19→21:05)
[2020-05-21] MEDS: NICARDIPINE 50 MG in SODIUM CHLORIDE 0.9% 230 ML IV PRN ×3 (03:42→19:00)
[2020-05-21] MEDS: BLOOD SUGAR DIAGNOSTIC STRIP TEST SCH ×3 (05:12→17:26)
[2020-05-21] MEDS: CLONIDINE 0.1MG TABLET PO SCH ×3 (05:23→21:34)
[2020-05-21] MEDS: SUCRALFATE 1 G/10 ML UDC PO SCH ×4 (05:24→21:34)
[2020-05-21 05:25] LABS: HEMATOCRIT. 34.1 % (42.0-52.0); HEMOGLOBIN. 11.1 g/dL (14.0-18.0); MEAN CORPUSCULAR HEMOGLOBIN 27.5 pg (28.0-32.0); MEAN PLATELET VOLUME 8.4 fl (7.4-10.4); PLATELET 151 x1000/uL (130-400); RED BLOOD CELL COUNT 4.05 mill/uL (4.7-6.1); RED CELL DISTRIBUTION WIDTH 14.5 % (11.6-14.6)
[2020-05-21] MEDS: INSULIN LISPRO 100 UNITS/ML SUBCUT SCH ×3 (05:25→17:43)
[2020-05-21 05:26] LABS: CHLORIDE 104 mEq/L (98-107)
[2020-05-21 05:31] LABS: PHOSPHORUS 2.6 mg/dL (2.5-4.9)
[2020-05-21 07:44] LABS: BG BASE EXCESS 2.4 mmol/L (-2.0-2.0); BG CARBOXYHEMOGLOBIN 0.3 % (0.5-1.5); BG DEOXYHEMOGLOBIN 4.9 % (0.0-5.0); BG FRACTION INSPIRED OXYGEN 40; BG HCO3 ACT 25.9 mmol/L (22.0-26.0); BG METHEMOGLOBIN 0.3 % (0.0-1.5); BG OXYGEN SATURATION 95.1 % (92.0-98.5); BG OXYHEMOGLOBIN 94.5 % (94.0-97.0); BG PCO2 35.6 mmHg (35.0-45.0); BG PH 7.479 (7.350-7.450); BG PO2 73.5 mmHg (75.0-100.0); BG SAMPLE SITE RIGHT BRACHIAL; BG TIDAL VOLUME(mL) 500 mL; BG TOTAL HEMOGLOBIN 10.5 g/dL (12.0-18.0); BG VENT MODE VENT- PRVC; BG VENT RATE 16 set
[2020-05-21] MEDS: CALCITRIOL 1MCG/ML AMP IV SCH (09:23)
[2020-05-21] MEDS: PANTOPRAZOLE SODIUM 40 MG/VIAL IV SCH ×2 (09:23→17:34)
[2020-05-21] MEDS: DEXAMETHASONE 10 MG/ML VIAL IV SCH (09:23)
[2020-05-21] MEDS: SEVELAMER CARBONATE 800 MG TABLET PO SCH ×3 (09:24→17:34)
[2020-05-21] MEDS: LEVETIRACETAM 250 MG in SODIUM CHLORIDE 0.9% 100 ML IV SCH ×2 (09:24→21:33)
[2020-05-21] MEDS: CLONIDINE 0.1MG TABLET PO PRN (09:26)
[2020-05-21] MEDS: ACETAMINOPHEN 650MG SUPP PR PRN (12:35)
[2020-05-21] MEDS: INSULIN GLARGINE UD 100 UNITS/ML SYR SUBCUT SCH ×2 (12:36→21:36)
[2020-05-21] MEDS: ENOXAPARIN 60MG/0.6ML SYR SUBCUT SCH (12:37)
[2020-05-21 14:26] LABS: PLATELET ESTIMATE NORMAL
[2020-05-21 17:06] LABS: *BARBITURATES SCREEN URINE NEGATIVE (NEGATIVE); OPIATES URINE SCREEN NEGATIVE (NEGATIVE); PHENCYCLIDINE URINE SCREEN NEGATIVE (NEGATIVE)
[2020-05-21 17:07] LABS: *AMPHETAMINES SCREEN URINE NEGATIVE (NEGATIVE); *BENZODIAZEPINES SCREEN URINE PRESUMTIVE POSITIVE (NEGATIVE); *COCAINE SCREEN URINE NEGATIVE (NEGATIVE); CANNABINOID URINE SCREEN NEGATIVE (NEGATIVE); METHADONE URINE SCREEN NEGATIVE (NEGATIVE)
[2020-05-21 19:58] LABS: HEMATOCRIT. 31.4 % (42.0-52.0); HEMOGLOBIN. 10.2 g/dL (14.0-18.0); MEAN CORPUSCULAR HEMOGLOBIN 27.8 pg (28.0-32.0); MEAN PLATELET VOLUME 8.6 fl (7.4-10.4); PLATELET 151 x1000/uL (130-400); RED BLOOD CELL COUNT 3.69 mill/uL (4.7-6.1); RED CELL DISTRIBUTION WIDTH 14.4 % (11.6-14.6)
[2020-05-21 20:39] LABS: CHLORIDE 105 mEq/L (98-107)
[2020-05-21 20:46] LABS: PHOSPHORUS 3.6 mg/dL (2.5-4.9)
[2020-05-21] MEDS ORDERED: NIFEDIPINE XL 60MG TAB PO SCH (21:00)
[2020-05-21 21:01] LABS: PLATELET ESTIMATE NORMAL
[2020-05-21] MEDS ORDERED: NIFEDIPINE XL 30MG TAB PO SCH (22:00)
[2020-05-22] VITALS (91 sets, daily range): BP systolic 116–160; BP diastolic 54–87
[2020-05-22] MEDS: BLOOD SUGAR DIAGNOSTIC STRIP TEST SCH ×6 (00:10→22:00)
[2020-05-22] MEDS: IPRATROPIUM/ALBUTEROL 0.5-3(2.5)MG/3ML NEB HHN SCH ×6 (00:20→20:30)
[2020-05-22] MEDS: INSULIN LISPRO 100 UNITS/ML SUBCUT SCH ×5 (00:28→23:13)
[2020-05-22 05:35] LABS: HEMOGLOBIN. 10.2 g/dL (14.0-18.0); MEAN CORPUSCULAR VOLUME 84.9 fL (80.0-94.0); MEAN PLATELET VOLUME 9.1 fl (7.4-10.4); PLATELET 164 x1000/uL (130-400); RED BLOOD CELL COUNT 3.65 mill/uL (4.7-6.1); RED CELL DISTRIBUTION WIDTH 14.4 % (11.6-14.6)
[2020-05-22 05:36] LABS: CHLORIDE 103 mEq/L (98-107)
[2020-05-22 05:45] LABS: PHOSPHORUS 3.9 mg/dL (2.5-4.9)
[2020-05-22] MEDS: CLONIDINE 0.1MG TABLET PO SCH ×3 (06:00→20:55)
[2020-05-22] MEDS: SUCRALFATE 1 G/10 ML UDC PO SCH ×4 (06:58→20:58)
[2020-05-22] MEDS: NICARDIPINE 50 MG in SODIUM CHLORIDE 0.9% 230 ML IV PRN (06:59)
[2020-05-22] MEDS: SEVELAMER CARBONATE 800 MG TABLET PO SCH ×3 (08:58→17:19)
[2020-05-22] MEDS: CALCITRIOL 1MCG/ML AMP IV SCH (08:58)
[2020-05-22] MEDS: DEXAMETHASONE 10 MG/ML VIAL IV SCH (08:58)
[2020-05-22] MEDS: PANTOPRAZOLE SODIUM 40 MG/VIAL IV SCH ×2 (08:58→17:19)
[2020-05-22] MEDS: LEVETIRACETAM 250 MG in SODIUM CHLORIDE 0.9% 100 ML IV SCH ×2 (08:59→20:54)
[2020-05-22 09:41] LABS: BG BASE EXCESS -0.4 mmol/L (-2.0-2.0); BG CARBOXYHEMOGLOBIN 0.3 % (0.5-1.5); BG DEOXYHEMOGLOBIN 5.1 % (0.0-5.0); BG FRACTION INSPIRED OXYGEN 40; BG HCO3 ACT 23.8 mmol/L (22.0-26.0); BG METHEMOGLOBIN 0.3 % (0.0-1.5); BG OXYGEN SATURATION 94.9 % (92.0-98.5); BG OXYHEMOGLOBIN 94.3 % (94.0-97.0); BG PCO2 37.2 mmHg (35.0-45.0); BG PH 7.424 (7.350-7.450); BG PO2 75.6 mmHg (75.0-100.0); BG SAMPLE SITE LEFT RADIAL; BG TIDAL VOLUME(mL) 500 mL; BG TOTAL HEMOGLOBIN 10.2 g/dL (12.0-18.0); BG VENT MODE VENT - PRVC; BG VENT RATE 18 set
[2020-05-22] MEDS: ENOXAPARIN 60MG/0.6ML SYR SUBCUT SCH (12:07)
[2020-05-22] MEDS: INSULIN GLARGINE UD 100 UNITS/ML SYR SUBCUT SCH ×2 (12:08→23:12)
[2020-05-22] MEDS: NIFEDIPINE 10MG CAPSULE NG SCH ×2 (13:09→20:55)
[2020-05-22 13:22] LABS: PLATELET ESTIMATE NORMAL
[2020-05-22] MEDS: FENTANYL CITRATE/PF 1,000 MCG in SODIUM CHLORIDE 0.9% 80 ML IV PRN (15:09)
[2020-05-22] MEDS ORDERED: INSULIN GLARGINE UD 100 UNITS/ML SYR SUBCUT NR (18:30)
[2020-05-23] VITALS (93 sets, daily range): BP systolic 111–174; BP diastolic 57–85
[2020-05-23] MEDS: IPRATROPIUM/ALBUTEROL 0.5-3(2.5)MG/3ML NEB HHN SCH ×4 (00:05→20:20)
[2020-05-23] MEDS: ACETAMINOPHEN 650MG/20.3ML UDC GT PRN (00:44)
[2020-05-23] MEDS: BLOOD SUGAR DIAGNOSTIC STRIP TEST SCH ×6 (02:00→22:10)
[2020-05-23] MEDS: SUCRALFATE 1 G/10 ML UDC PO SCH (05:18)
[2020-05-23] MEDS: SEVELAMER CARBONATE 800 MG TABLET PO SCH ×3 (05:18→17:00)
[2020-05-23] MEDS: CLONIDINE 0.1MG TABLET PO SCH ×3 (05:18→21:56)
[2020-05-23] MEDS: NIFEDIPINE 10MG CAPSULE NG SCH ×3 (05:18→21:56)
[2020-05-23 05:35] LABS: CHLORIDE 106 mEq/L (98-107); HEMATOCRIT. 29.4 % (42.0-52.0); HEMOGLOBIN. 9.8 g/dL (14.0-18.0); MEAN CORPUSCULAR HEMOGLOBIN 28.2 pg (28.0-32.0); MEAN CORPUSCULAR VOLUME 84.7 fL (80.0-94.0); MEAN PLATELET VOLUME 9.5 fl (7.4-10.4); PLATELET 176 x1000/uL (130-400); RED BLOOD CELL COUNT 3.48 mill/uL (4.7-6.1); RED CELL DISTRIBUTION WIDTH 14.4 % (11.6-14.6)
[2020-05-23 05:44] LABS: PHOSPHORUS 3.3 mg/dL (2.5-4.9)
[2020-05-23] MEDS ORDERED: HEPARIN 5000 UNITS/ML VIAL SUBCUT SCH (06:00)
[2020-05-23 07:51] LABS: PLATELET ESTIMATE NORMAL
[2020-05-23] MEDS: LEVETIRACETAM 250 MG in SODIUM CHLORIDE 0.9% 100 ML IV SCH ×2 (07:59→21:17)
[2020-05-23] MEDS: FENTANYL CITRATE/PF 1,000 MCG in SODIUM CHLORIDE 0.9% 80 ML IV PRN ×2 (07:59→20:30)
[2020-05-23 08:02] LABS: BG BASE EXCESS 1.9 mmol/L (-2.0-2.0); BG CARBOXYHEMOGLOBIN 0.3 % (0.5-1.5); BG DEOXYHEMOGLOBIN 13.6 % (0.0-5.0); BG FRACTION INSPIRED OXYGEN 40; BG HCO3 ACT 27.1 mmol/L (22.0-26.0); BG METHEMOGLOBIN 0.3 % (0.0-1.5); BG OXYGEN SATURATION 86.3 % (92.0-98.5); BG OXYHEMOGLOBIN 85.8 % (94.0-97.0); BG PCO2 45.1 mmHg (35.0-45.0); BG PH 7.396 (7.350-7.450); BG PO2 52.9 mmHg (75.0-100.0); BG SAMPLE SITE RIGHT RADIAL; BG TIDAL VOLUME(mL) 500 mL; BG TOTAL HEMOGLOBIN 10.3 g/dL (12.0-18.0); BG VENT MODE VENT- PRVC; BG VENT RATE 14 set
[2020-05-23] MEDS: PANTOPRAZOLE SODIUM 40 MG/VIAL IV SCH ×2 (08:05→18:17)
[2020-05-23] MEDS: CALCITRIOL 1MCG/ML AMP IV SCH (08:05)
[2020-05-23] MEDS: DEXAMETHASONE 10 MG/ML VIAL IV SCH (08:06)
[2020-05-23] MEDS: ENOXAPARIN 60MG/0.6ML SYR SUBCUT SCH ×2 (08:07→09:00)
[2020-05-23] MEDS: INSULIN LISPRO 100 UNITS/ML SUBCUT SCH ×3 (12:00→21:57)
[2020-05-23] MEDS ORDERED: HEPARIN SODIUM 1,000 UNIT/1ML VIAL IV NR (12:45)
[2020-05-23] MEDS: INSULIN GLARGINE UD 100 UNITS/ML SYR SUBCUT SCH ×2 (15:00→21:56)
[2020-05-23] MEDS: HYDRALAZINE 20MG/ML VIAL IV PRN (21:17)
[2020-05-24] VITALS (98 sets, daily range): BP systolic 104–183; BP diastolic 49–129
[2020-05-24] MEDS: BLOOD SUGAR DIAGNOSTIC STRIP TEST SCH ×6 (02:24→21:50)
[2020-05-24] MEDS: FENTANYL CITRATE/PF 1,000 MCG in SODIUM CHLORIDE 0.9% 80 ML IV PRN ×4 (03:19→22:50)
[2020-05-24] MEDS: ACETAMINOPHEN 650MG/20.3ML UDC GT PRN (04:13)
[2020-05-24] MEDS: IPRATROPIUM/ALBUTEROL 0.5-3(2.5)MG/3ML NEB HHN SCH ×5 (04:35→20:35)
[2020-05-24 05:09] LABS: HEMATOCRIT. 30.6 % (42.0-52.0); MEAN CORPUSCULAR HEMOGLOBIN 27.7 pg (28.0-32.0); MEAN CORPUSCULAR VOLUME 85.2 fL (80.0-94.0); MEAN PLATELET VOLUME 9.9 fl (7.4-10.4); PLATELET 168 x1000/uL (130-400); RED CELL DISTRIBUTION WIDTH 14.7 % (11.6-14.6)
[2020-05-24 05:18] LABS: CHLORIDE 108 mEq/L (98-107)
[2020-05-24 05:28] LABS: PHOSPHORUS 3.5 mg/dL (2.5-4.9)
[2020-05-24] MEDS: CLONIDINE 0.1MG TABLET PO SCH ×3 (06:19→21:48)
[2020-05-24] MEDS: NIFEDIPINE 10MG CAPSULE NG SCH ×3 (06:19→21:48)
[2020-05-24] MEDS: SEVELAMER CARBONATE 800 MG TABLET PO SCH ×3 (06:20→17:50)
[2020-05-24] MEDS: INSULIN LISPRO 100 UNITS/ML SUBCUT SCH ×3 (06:21→17:51)
[2020-05-24 07:17] LABS: PLATELET ESTIMATE NORMAL
[2020-05-24 08:53] LABS: BG BASE EXCESS -0.6 mmol/L (-2.0-2.0); BG CARBOXYHEMOGLOBIN 0.3 % (0.5-1.5); BG DEOXYHEMOGLOBIN 10.6 % (0.0-5.0); BG FRACTION INSPIRED OXYGEN 40; BG HCO3 ACT 23.9 mmol/L (22.0-26.0); BG METHEMOGLOBIN 0.3 % (0.0-1.5); BG OXYGEN SATURATION 89.3 % (92.0-98.5); BG OXYHEMOGLOBIN 88.8 % (94.0-97.0); BG PCO2 38.6 mmHg (35.0-45.0); BG PH 7.409 (7.350-7.450); BG PO2 68.4 mmHg (75.0-100.0); BG SAMPLE SITE RIGHT RADIAL; BG TIDAL VOLUME(mL) 500 mL; BG TOTAL HEMOGLOBIN 9.4 g/dL (12.0-18.0); BG VENT MODE PRVC; BG VENT RATE 14 set
[2020-05-24] MEDS: LEVETIRACETAM 250 MG in SODIUM CHLORIDE 0.9% 100 ML IV SCH ×2 (09:53→21:48)
[2020-05-24] MEDS: CALCITRIOL 1MCG/ML AMP IV SCH (09:53)
[2020-05-24] MEDS: DEXAMETHASONE 10 MG/ML VIAL IV SCH (09:54)
[2020-05-24] MEDS: ENOXAPARIN 60MG/0.6ML SYR SUBCUT SCH (09:54)
[2020-05-24] MEDS ORDERED: HEPARIN 100 UNITS/1 ML VIAL IVF PRN (10:00)
[2020-05-24] MEDS: PANTOPRAZOLE SODIUM 40 MG/VIAL IV SCH ×2 (11:04→17:49)
[2020-05-24] MEDS: INSULIN GLARGINE UD 100 UNITS/ML SYR SUBCUT SCH ×2 (11:10→21:49)
[2020-05-24] MEDS: CLONIDINE 0.1MG TABLET PO PRN (13:26)
[2020-05-24] MEDS: HYDRALAZINE 20MG/ML VIAL IV PRN (13:26)
[2020-05-24] MEDS ORDERED: HEPARIN SODIUM 1,000 UNIT/1ML VIAL IV NR ×2 (22:25→23:38)
[2020-05-24] MEDS ORDERED: HEPARIN 5000 UNITS/ML VIAL IV ONE (23:30)
[2020-05-24] MEDS ORDERED: HEPARIN SODIUM 1,000 UNIT/1ML VIAL IV PRN (23:47)
[2020-05-25] VITALS (67 sets, daily range): BP systolic 71–166; BP diastolic 48–114
[2020-05-25] MEDS ORDERED: ALTEPLASE 2MG/VIAL ITC NR ×2 (00:15→00:30)
[2020-05-25] MEDS: IPRATROPIUM/ALBUTEROL 0.5-3(2.5)MG/3ML NEB HHN SCH ×6 (00:24→20:48)
[2020-05-25] MEDS: BLOOD SUGAR DIAGNOSTIC STRIP TEST SCH ×4 (00:29→17:14)
[2020-05-25] MEDS: INSULIN LISPRO 100 UNITS/ML SUBCUT SCH ×4 (00:29→17:23)
[2020-05-25] MEDS ORDERED: PROPOFOL 10MG/ML 100ML 100 ML IV PRN (02:30)
[2020-05-25] MEDS: FENTANYL CITRATE/PF 2,500 MCG in SODIUM CHLORIDE 0.9% 200 ML IV PRN ×2 (02:47→14:29)
[2020-05-25] MEDS: MIDAZOLAM HCL 100 MG in DEXT 5% WATER 80 ML IV PRN (03:44)
[2020-05-25] MEDS: ACETAMINOPHEN 650MG/20.3ML UDC GT PRN (04:38)
[2020-05-25 05:42] LABS: CHLORIDE 111 mEq/L (98-107); HEMATOCRIT. 27.6 % (42.0-52.0); MEAN CORPUSCULAR HEMOGLOBIN 27.9 pg (28.0-32.0); MEAN CORPUSCULAR VOLUME 85.9 fL (80.0-94.0); MEAN PLATELET VOLUME 10.1 fl (7.4-10.4); PLATELET 167 x1000/uL (130-400); RED BLOOD CELL COUNT 3.22 mill/uL (4.7-6.1); RED CELL DISTRIBUTION WIDTH 14.4 % (11.6-14.6)
[2020-05-25 05:52] LABS: PHOSPHORUS 3.6 mg/dL (2.5-4.9)
[2020-05-25] MEDS: NIFEDIPINE 10MG CAPSULE NG SCH ×3 (06:00→22:00)
[2020-05-25] MEDS: CLONIDINE 0.1MG TABLET PO SCH ×3 (06:00→22:00)
[2020-05-25] MEDS: SEVELAMER CARBONATE 800 MG TABLET PO SCH ×3 (07:00→17:00)
[2020-05-25 07:46] LABS: BG BASE EXCESS -6.5 mmol/L (-2.0-2.0); BG CARBOXYHEMOGLOBIN 0.3 % (0.5-1.5); BG DEOXYHEMOGLOBIN 2.4 % (0.0-5.0); BG METHEMOGLOBIN 0.6 % (0.0-1.5); BG OXYGEN SATURATION 97.6 % (92.0-98.5); BG OXYHEMOGLOBIN 96.7 % (94.0-97.0); BG PCO2 37.8 mmHg (35.0-45.0); BG PH 7.319 (7.350-7.450); BG PO2 121.2 mmHg (75.0-100.0); BG SAMPLE SITE RIGHT RADIAL; BG TIDAL VOLUME(mL) 500 mL; BG TOTAL HEMOGLOBIN 8.2 g/dL (12.0-18.0); BG VENT MODE VENT - A/C; BG VENT RATE 10 set
[2020-05-25] MEDS: PANTOPRAZOLE SODIUM 40 MG/VIAL IV SCH ×2 (08:53→17:00)
[2020-05-25] MEDS: ENOXAPARIN 60MG/0.6ML SYR SUBCUT SCH (08:54)
[2020-05-25] MEDS: CALCITRIOL 1MCG/ML AMP IV SCH (08:54)
[2020-05-25] MEDS: DEXAMETHASONE 10 MG/ML VIAL IV SCH (08:54)
[2020-05-25] MEDS: LEVETIRACETAM 250 MG in SODIUM CHLORIDE 0.9% 100 ML IV SCH ×2 (08:57→22:47)
[2020-05-25] MEDS: INSULIN GLARGINE UD 100 UNITS/ML SYR SUBCUT SCH ×2 (09:33→22:13)
[2020-05-25 13:20] LABS: PLATELET ESTIMATE NORMAL
[2020-05-25] MEDS: ACETAMINOPHEN 650MG SUPP PR PRN (23:30)
[2020-05-26] VITALS (91 sets, daily range): BP systolic 77–130; BP diastolic 43–76
[2020-05-26] MEDS: IPRATROPIUM/ALBUTEROL 0.5-3(2.5)MG/3ML NEB HHN SCH ×6 (00:34→21:15)
[2020-05-26] MEDS: DEXTROSE 50% WATER 50ML SYRINGE IV PRN ×2 (00:36→09:47)
[2020-05-26] MEDS: FENTANYL CITRATE/PF 2,500 MCG in SODIUM CHLORIDE 0.9% 200 ML IV PRN ×2 (03:13→18:35)
[2020-05-26 05:28] LABS: HEMATOCRIT. 27.3 % (42.0-52.0); HEMOGLOBIN. 8.8 g/dL (14.0-18.0); MEAN CORPUSCULAR HEMOGLOBIN 27.8 pg (28.0-32.0); MEAN CORPUSCULAR VOLUME 86.1 fL (80.0-94.0); PLATELET 151 x1000/uL (130-400); RED BLOOD CELL COUNT 3.17 mill/uL (4.7-6.1); RED CELL DISTRIBUTION WIDTH 14.6 % (11.6-14.6)
[2020-05-26 05:36] LABS: CHLORIDE 107 mEq/L (98-107)
[2020-05-26 05:56] LABS: PHOSPHORUS 3.8 mg/dL (2.5-4.9)
[2020-05-26] MEDS: BLOOD SUGAR DIAGNOSTIC STRIP TEST SCH ×5 (06:00→23:59)
[2020-05-26] MEDS: NIFEDIPINE 10MG CAPSULE NG SCH (06:00)
[2020-05-26] MEDS: INSULIN LISPRO 100 UNITS/ML SUBCUT SCH ×4 (06:00→17:54)
[2020-05-26] MEDS: CLONIDINE 0.1MG TABLET PO SCH ×3 (06:00→21:30)
[2020-05-26 07:27] LABS: BG BASE EXCESS -2.9 mmol/L (-2.0-2.0); BG CARBOXYHEMOGLOBIN 0.3 % (0.5-1.5); BG DEOXYHEMOGLOBIN 4.7 % (0.0-5.0); BG HCO3 ACT 20.9 mmol/L (22.0-26.0); BG METHEMOGLOBIN 0.1 % (0.0-1.5); BG OXYGEN SATURATION 95.3 % (92.0-98.5); BG OXYHEMOGLOBIN 94.9 % (94.0-97.0); BG PCO2 32.7 mmHg (35.0-45.0); BG PH 7.424 (7.350-7.450); BG PO2 74.1 mmHg (75.0-100.0); BG SAMPLE SITE RIGHT RADIAL; BG TIDAL VOLUME(mL) 500 mL; BG TOTAL HEMOGLOBIN 9.1 g/dL (12.0-18.0); BG VENT MODE VENT - A/C; BG VENT RATE 14 set
[2020-05-26] MEDS: SEVELAMER CARBONATE 800 MG TABLET PO SCH (08:02)
[2020-05-26] MEDS: ACETAMINOPHEN 650MG/20.3ML UDC GT PRN (08:03)
[2020-05-26] MEDS: LEVETIRACETAM 250 MG in SODIUM CHLORIDE 0.9% 100 ML IV SCH ×2 (08:03→21:29)
[2020-05-26] MEDS: PANTOPRAZOLE SODIUM 40 MG/VIAL IV SCH ×2 (08:03→17:53)
[2020-05-26] MEDS: ENOXAPARIN 60MG/0.6ML SYR SUBCUT SCH (08:04)
[2020-05-26] MEDS: CALCITRIOL 1MCG/ML AMP IV SCH (08:04)
[2020-05-26] MEDS: DEXAMETHASONE 10 MG/ML VIAL IV SCH (08:27)
[2020-05-26] MEDS: INSULIN GLARGINE UD 100 UNITS/ML SYR SUBCUT SCH (09:48)
[2020-05-26] MEDS ORDERED: DEXT 5%/0.9% NACL 1,000 ML IV SCH (10:00)
[2020-05-26 10:14] LABS: PLATELET ESTIMATE NORMAL
[2020-05-26] MEDS ORDERED: DEXT 10%/0.9% NACL 1,000 ML IV SCH (13:45)
[2020-05-26] MEDS ORDERED: SODIUM CHLORIDE 23.4% 154 MEQ in DEXT 10% WATER 1,000 ML IV SCH (15:00)
[2020-05-26] MEDS: MIDAZOLAM HCL 100 MG in DEXT 5% WATER 80 ML IV PRN (18:33)
[2020-05-27] VITALS (75 sets, daily range): BP systolic 44–207; BP diastolic 18–93
[2020-05-27] MEDS: INSULIN LISPRO 100 UNITS/ML SUBCUT SCH ×3 (00:26→11:49)
[2020-05-27] MEDS: IPRATROPIUM/ALBUTEROL 0.5-3(2.5)MG/3ML NEB HHN SCH ×4 (01:09→16:10)
[2020-05-27 05:35] LABS: HEMATOCRIT. 25.8 % (42.0-52.0); HEMOGLOBIN. 8.4 g/dL (14.0-18.0); MEAN CORPUSCULAR HEMOGLOBIN 27.9 pg (28.0-32.0); MEAN PLATELET VOLUME 10.5 fl (7.4-10.4); PLATELET 191 x1000/uL (130-400); RED CELL DISTRIBUTION WIDTH 14.8 % (11.6-14.6)
[2020-05-27 05:58] LABS: PHOSPHORUS 7.3 mg/dL (2.5-4.9)
[2020-05-27] MEDS: FENTANYL CITRATE/PF 2,500 MCG in SODIUM CHLORIDE 0.9% 200 ML IV PRN (06:44)
[2020-05-27] MEDS: BLOOD SUGAR DIAGNOSTIC STRIP TEST SCH ×2 (06:45→12:00)
[2020-05-27] MEDS: PANTOPRAZOLE SODIUM 40 MG/VIAL IV SCH (08:26)
[2020-05-27] MEDS: DEXAMETHASONE 10 MG/ML VIAL IV SCH (08:26)
[2020-05-27] MEDS: CALCITRIOL 1MCG/ML AMP IV SCH (08:27)
[2020-05-27] MEDS: LEVETIRACETAM 250 MG in SODIUM CHLORIDE 0.9% 100 ML IV SCH (08:27)
[2020-05-27 09:48] LABS: PLATELET ESTIMATE NORMAL
[2020-05-27] MEDS ORDERED: INSULIN GLARGINE UD 100 UNITS/ML SYR SUBCUT SCH (10:00)
[2020-05-27] MEDS: PHENYLEPHRINE 40 MG in DEXT 5% WATER 246 ML IV PRN ×2 (10:01→14:59)
[2020-05-27] MEDS: ENOXAPARIN 60MG/0.6ML SYR SUBCUT SCH (11:49)
[2020-05-27] MEDS ORDERED: NOREPINEPHRINE 32 MG in DEXT 5% WATER 468 ML IV PRN (12:15)
[2020-05-27] MEDS: CLONIDINE 0.1MG TABLET PO SCH (13:49)
[2020-05-27] MEDS ORDERED: DOPAMINE 800MG PREMIX (DOUBLE) 250 ML IV PRN (16:15)
[2020-05-27] MEDS ORDERED: VASOPRESSIN 10 UNIT in SODIUM CHLORIDE 0.9% 99.5 ML IV PRN (16:40)
== END 2020-05-27 18:02 | disposition expired | DRG 870 ==
LOC: ER 10:50 → EDBEDREQ 12:57 → EDBEDREQTM 12:57 → EDBEDREQ 14:12 → MICUSO 22:33
PROVIDERS: ADMIT Internal Medicine; ATTEND Internal Medicine
PROC: 0BH17EZ Insertion of Endotracheal Airway into Trachea, Via Natural or Artificial Opening (ICD-10-PCS; principal; 2020-05-14)
PROC: 5A1955Z Respiratory Ventilation, Greater than 96 Consecutive Hours (ICD-10-PCS; 2020-05-14)
PROC: 02HV33Z Insertion of Infusion Device into Superior Vena Cava, Percutaneous Approach (ICD-10-PCS; 2020-05-14)
PROC: B548ZZA Ultrasonography of Superior Vena Cava, Guidance (ICD-10-PCS; 2020-05-14)
PROC: 06H033Z Insertion of Infusion Device into Inferior Vena Cava, Percutaneous Approach (ICD-10-PCS; 2020-05-17)
PROC: B549ZZA Ultrasonography of Inferior Vena Cava, Guidance (ICD-10-PCS; 2020-05-17)
PROC: 5A1D70Z Performance of Urinary Filtration, Intermittent, Less than 6 Hours Per Day (ICD-10-PCS; 2020-05-17)
PROC: 30243K1 Transfusion of Nonautologous Frozen Plasma into Central Vein, Percutaneous Approach (ICD-10-PCS; 2020-05-17)
PROC: 5A1D70Z Performance of Urinary Filtration, Intermittent, Less than 6 Hours Per Day (ICD-10-PCS; 2020-05-18)
PROC: 5A1D70Z Performance of Urinary Filtration, Intermittent, Less than 6 Hours Per Day (ICD-10-PCS; 2020-05-20)
PROC: 5A1D70Z Performance of Urinary Filtration, Intermittent, Less than 6 Hours Per Day (ICD-10-PCS; 2020-05-23)
PROC: 5A1D70Z Performance of Urinary Filtration, Intermittent, Less than 6 Hours Per Day (ICD-10-PCS; 2020-05-24)
PROC: 5A1D70Z Performance of Urinary Filtration, Intermittent, Less than 6 Hours Per Day (ICD-10-PCS; 2020-05-25)
DX: A41.89 Other specified sepsis (principal); U07.1 COVID-19; R65.21 Severe sepsis with septic shock; J12.89 Other viral pneumonia; J96.01 Acute respiratory failure with hypoxia; G92 Toxic encephalopathy; E43 Unspecified severe protein-calorie malnutrition; T86.19 Other complication of kidney transplant; E87.2 Acidosis; K92.2 Gastrointestinal hemorrhage, unspecified; N17.9 Acute kidney failure, unspecified; Z68.1 Body mass index [BMI] 19.9 or less, adult; N39.0 Urinary tract infection, site not specified; T86.12 Kidney transplant failure; Z66 Do not resuscitate; D64.9 Anemia, unspecified; E11.36 Type 2 diabetes mellitus with diabetic cataract; N40.0 Benign prostatic hyperplasia without lower urinary tract symptoms; I12.9 Hypertensive chronic kidney disease with stage 1 through stage 4 chronic kidney disease, or unspecified chronic kidney disease; N18.9 Chronic kidney disease, unspecified; D72.810 Lymphocytopenia; E11.22 Type 2 diabetes mellitus with diabetic chronic kidney disease; E11.51 Type 2 diabetes mellitus with diabetic peripheral angiopathy without gangrene; E11.649 Type 2 diabetes mellitus with hypoglycemia without coma; E78.5 Hyperlipidemia, unspecified; E83.51 Hypocalcemia; E87.5 Hyperkalemia; G40.909 Epilepsy, unspecified, not intractable, without status epilepticus; W18.39XA Other fall on same level, initial encounter; E11.65 Type 2 diabetes mellitus with hyperglycemia; G90.8 Other disorders of autonomic nervous system; Y83.0 Surgical operation with transplant of whole organ as the cause of abnormal reaction of the patient, or of later complication, without mention of misadventure at the time of the procedure; Y93.89 Activity, other specified; Y92.098 Other place in other non-institutional residence as the place of occurrence of the external cause; Y99.8 Other external cause status; Z78.1 Physical restraint status; Z79.4 Long term (current) use of insulin; Z79.899 Other long term (current) drug therapy; Z83.3 Family history of diabetes mellitus; Z86.73 Personal history of transient ischemic attack (TIA), and cerebral infarction without residual deficits; Z87.891 Personal history of nicotine dependence; Z89.421 Acquired absence of other right toe(s)
CPT/HCPCS: 36415; 36600; 71045; 74018; 76937; 80048; 80053; 80158; 80305; 80320; 81003; 82140; 82270; 82330; 82375; 82607; 82728; 82746; 82805; 82962; 83010; 83036; 83605; 83615; 83735; 83880; 84100; 84145; 84439; 84443; 84478; 84481; 84484; 85014; 85018; 85025; 85027; 85044; 85379; 85384; 86140; 86850; 86900; 86927; 87635; 93005; 94003; 94640; 96365; 99291; C1725; C1752; C9113; J0360; J0456; J0636; J0692; J1100; J1644; J1650; J1815; J1953; J2250; J2354; J2370; J2543; J2704; J2920; J2930; J2997; J3010; J3490; J7050; J7060; J7131; J7502; P9017; Q9957; G0480; U0003-CS